=== PATIENT | male | born 1980 | race Caucasian/White ===

== ENCOUNTER → 2020-07-24 13:06 | Outpatient (BNVA) | payer OTHER, SELFPAY | PROVIDERS: PCP Internal Medicine; Referring Provider Internal Medicine; Visit Provider Physician Assistant | DX: Z76.89 Persons encountering health services in other specified circumstances (principal) ==

== ENCOUNTER → 2020-08-07 12:54 | Outpatient (BNVA) | payer OTHER, SELFPAY | PROVIDERS: PCP Internal Medicine; Visit Provider Physician Assistant | DX: Z76.89 Persons encountering health services in other specified circumstances (principal) ==

== ENCOUNTER → 2020-08-28 10:50 | Outpatient (BNVA) | payer OTHER, SELFPAY | PROVIDERS: PCP Internal Medicine; Referring Provider Internal Medicine; Visit Provider Physician Assistant | DX: Z76.89 Persons encountering health services in other specified circumstances (principal) ==

== ENCOUNTER → 2020-10-30 11:13 | Outpatient (BNVA) | payer OTHER, SELFPAY | PROVIDERS: PCP Internal Medicine; Visit Provider Physician Assistant ==

== ENCOUNTER → 2020-11-13 11:20 | Outpatient (BNVA) | payer OTHER, SELFPAY | PROVIDERS: PCP Internal Medicine; Visit Provider Physician Assistant ==

== ENCOUNTER → 2020-12-03 13:48 | Outpatient (BNVA) | payer OTHER, SELFPAY | PROVIDERS: PCP Internal Medicine; Visit Provider Physician Assistant ==

== ENCOUNTER → 2022-04-20 15:43 | Outpatient (BNVA) | payer OTHER, SELFPAY | PROVIDERS: PCP Nurse Practitioner Family; Visit Provider Dietitian, Registered | DX: Z71.3 Dietary counseling and surveillance (principal); E66.01 Morbid (severe) obesity due to excess calories | CPT/HCPCS: 97802 ==

== ENCOUNTER → 2022-04-21 16:30 | Outpatient (BNVA) | payer OTHER, SELFPAY | PROVIDERS: PCP Nurse Practitioner Family; Visit Provider Counselor Mental Health | DX: F32.A Depression, unspecified (principal); E66.01 Morbid (severe) obesity due to excess calories; E11.9 Type 2 diabetes mellitus without complications | CPT/HCPCS: 90791 ==

== ENCOUNTER 2022-05-26 07:34 | Outpatient (REF) | payer OTHER, SELFPAY ==
--- NOTE | ~2022-05-26 | US_ITS ---
EXAMINATION: US COMPLETE ABDOMEN WITH LIVER ELASTOGRAPHY CLINICAL INFORMATION: Type 2 diabetes mellitus without complications. COMPARISON: None. TECHNIQUE: Real-time imaging of the abdominal viscera. Noninvasive ultrasound liver fibrosis assessment is performed using Jonathan ElastPQ point quantification shear wave elastography (2D-SWE) with a C5-2 MHz transducer. Multiple elastography samples are obtained. FINDINGS: PANCREAS: The visualized pancreatic head and body are normal in appearance. The remainder of the pancreas is obscured from visualization by the overlying bowel gas. ABDOMINAL AORTA: The proximal, middle, and distal aortic segments are normal in caliber. INFERIOR VENA CAVA: Visualized portions are normal. LIVER: The liver demonstrates normal size, contour and increased echogenicity. No focal lesion or intrahepatic biliary duct dilatation. The right lobe measures 21.5 cm in length. The left lobe measures 15.6 cm in length. Portal flow is hepatopedal. Shear wave liver elastography median stiffness is 1.81 m/s (reference: normal median stiffness is 1.3 m/s or less). IQR/median stiffness to assess sampling precision is 0.1 (reference: good quality data set is IQR/median stiffness of 0.15 or less). GALLBLADDER: There are mobile echogenic gallstones with mild wall thickening measuring 0.3 cm. The stones measure 2.0 and 4.0 cm. There is no pericholecystic fluid collection or tenderness. COMMON BILE DUCT: Normal in caliber measuring 0.4 cm in diameter. RIGHT KIDNEY: There is normal cortical thickness. No hydronephrosis. No renal calculi or focal parenchymal lesions. The kidney measures 13.7 cm in maximum dimension. There is an anechoic cyst upper pole measuring 0.8 x 0.8 x 0.6 cm. LEFT KIDNEY: There is normal cortical thickness. No hydronephrosis. No renal calculi or focal parenchymal lesions. The kidney measures 13.3 cm in maximum dimension. SPLEEN: Normal. The spleen measures 13.2 cm in maximum dimension. FREE FLUID: None. US/US abdomen comp w elastography IMPRESSION: 1. Diffuse hepatic steatosis without focal lesion. 2. Gallstones. 3. Anechoic upper pole cyst right kidney. 4. Liver elastography: Median liver stiffness 1.81 m/s corresponding to cACLD (suggestive) REFERENCE: Society of Radiologists in Ultrasound Liver Stiffness Thresholds (2019): LIVER STIFFNESS THRESHOLDS: *Liver Stiffness equal or less than 1.3 m/s: High probability of being normal. *Liver Stiffness less than 1.7 m/s: In the absence of other known clinical signs, rules out compensated advanced chronic liver disease. *Liver Stiffness 1.7-2.1 m/s: Suggestive of compensated advanced chronic liver disease but need further test for confirmation. *Liver Stiffness over 2.1 m/s: Rules in compensated advanced chronic liver disease. *Liver Stiffness over 2.4 m/s: Suggestive of clinically significant portal hypertension. QUALITY OF DATA SET: *IQR/Median value equal or less than 0.15 implies a quality data set. *IQR/Median value over 0.15 implies a poor quality data set. SIGNIFICANT CHANGE FROM PRIOR EXAM: Significant change if liver stiffness measurement is 10% or greater from prior exam. OTHER CONSIDERATIONS: The stage of liver fibrosis may be overestimated in the setting of acute hepatitis, liver inflammation, elevated liver function tests, hepatic vascular congestion, obstructive cholestasis, non-fasting state, and infiltrative diseases such as amyloidosis and lymphoma. In some patients with NAFLD, the liver stiffness thresholds for compensated advanced chronic liver disease may be lower. In causes other than viral hepatitis and NAFLD, liver stiffness thresholds are not well established.
--- NOTE | ~2022-05-26 | FL_ITS ---
EXAMINATION: XR FLUOROSCOPY UPPER GI WITH AIR CLINICAL INFORMATION: Preop. Type 2 diabetes mellitus. COMPARISON: None TECHNIQUE: Routine upper GI air-contrast study was performed in upright and lying position. FINDINGS: Following oral administration of thick barium and effervescent granules there is normal propagation bolus from the oral cavity through the pharynx, esophagus into stomach without any evidence of obstruction, narrowing or stricture. On placing patient supine and prone lying the course, caliber and peristalsis of the stomach, duodenal bulb and the CBD is normal. The mucosal pattern of the stomach and the duodenum is normal. FLUOROSCOPY TIME: 1.0 minutes. DOSE AREA PRODUCT: 77.698 uGy-m2 (microgray-meter squared.) FL/FL upper GI w air IMPRESSION: Normal upper GI air-contrast study.
--- NOTE | ~2022-05-26 | XR_ITS ---
EXAMINATION: XR CHEST CLINICAL INFORMATION: Diabetes mellitus. COMPARISON: Chest x-ray 06/19/2020 TECHNIQUE: 2 views of the chest were obtained. FINDINGS: No significant abnormality is noted involving the heart, lungs, mediastinum, bony thorax or soft tissues. XR/XR chest 2V IMPRESSION: Unremarkable chest examination.
== END 2022-05-26 07:35 | disposition home or self-care (01) ==
LOC: HO.US 07:34
PROVIDERS: Visit Provider Physician Assistant
DX: E11.9 Type 2 diabetes mellitus without complications (principal); E66.01 Morbid (severe) obesity due to excess calories; I10 Essential (primary) hypertension
CPT/HCPCS: 71046; 74246; 76705; 76981

== ENCOUNTER → 2022-10-11 12:30 | Outpatient (BNVA) | payer SELFPAY | PROVIDERS: PCP Nurse Practitioner Family; Visit Provider Counselor Mental Health | DX: F32.A Depression, unspecified (principal); E66.01 Morbid (severe) obesity due to excess calories; E11.9 Type 2 diabetes mellitus without complications | CPT/HCPCS: 90832 ==

== ENCOUNTER 2022-12-16 11:24 | Outpatient (REF) | payer BC, SELFPAY ==
--- NOTE | 2022-12-16 12:13 | ECG_ITS ---
Test Reason : preop Blood Pressure : / mmHG Vent. Rate : 071 BPM Atrial Rate : 071 BPM P-R Int : 178 ms QRS Dur : 114 ms QT Int : 388 ms P-R-T Axes : 051 052 037 degrees QTc Int : 421 ms Normal sinus rhythm Incomplete left bundle branch block Nonspecific ST and T wave abnormality Abnormal ECG When compared with ECG of 19-JUN-2020 13:58, Nonspecific T wave abnormality now evident in Lateral leads Referred By: Ira Diana Electronically Signed By:IRVIN HENRIQUEZ
[2022-12-16 12:19] LABS: MANUAL DIFF FLAG NO
[2022-12-16 14:14] LABS: Basophils Absolute Auto 0.1 X10*3/uL (0.0-0.2); Basophils Percent Auto 0.9 % (0-2); Eosinophils Absolute Auto 0.2 X10*3/uL (0.0-0.4); Eosinophils Percent Auto 2.5 % (0-4); Hematocrit 43.3 % (42.0-52.0); Hemoglobin 14.2 g/dl (14.0-18.0); Imm Gran Abs Auto 0.04 X10*3/uL (0.00-0.03); Imm Gran Pct Auto 0.5 % (0.0-0.4); Lymphocytes Absolute Auto 1.9 X10*3/uL (1.2-4.9); Lymphocytes Percent Auto 24.6 % (20-40); Mean Corpuscular HGB Conc 32.8 g/dl (31.0-36.0); Mean Corpuscular Hemoglobin 26.1 pg (27.0-33.0); Mean Corpuscular Volume 79.6 fL (80.0-98.0); Mean Platelet Volume 9.4 fL (9.4-12.4); Monocytes Absolute Auto 0.5 X10*3/uL (0.1-1.2); Monocytes Percent Auto 5.9 % (2-11); Neutrophils Absolute Auto 5.2 x10*3/uL (2.0-8.3); Neutrophils Percent Auto 65.6 % (45-73); Platelet Count 319 X10*3/uL (160-400); Red Blood Count 5.44 X10*6/uL (4.60-5.80); Red Cell Distribution Width 14.2 % (11.0-16.0); White Blood Count 7.9 X10*3/uL (4.8-10.8)
[2022-12-16 14:48] LABS: Estimated Average Glucose 154 mg/dL
[2022-12-16 15:22] LABS: Alanine Aminotransferase 22 U/L (0-40); Albumin Level 3.9 g/dL (3.5-5.0); Alkaline Phosphatase 110 U/L (39-117); Anion Gap 15 (12-20); Aspartate Amino Transferase 16 U/L (5-37); Bilirubin Total 0.8 mg/dL (0.0-1.0); Blood Urea Nitrogen 10 mg/dL (9-16); Carbon Dioxide 23 mmol/L (22-29); Chloride 105 mmol/L (96-108); Cholesterol 173 mg/dL; Estimated Glomerular Filt Rate > 60; Glucose Random 113 mg/dL (60-115); HDL Cholesterol 30 mg/dL; Iron 64 mcg/dL (45-160); LDL Cholesterol Calculated 124 mg/dl; Percent Iron Saturation 21 % (15-50); Sodium 139 mmol/L (135-145); Total Iron Binding Capacity 298 mcg/dL (228-428); Triglycerides 99 mg/dL; Unsaturated Iron Binding 234 ug/dL
[2022-12-16 15:51] LABS: Ferritin 184 ng/mL (20-250); Folate 6.4 ng/mL (> or = 4.0); Insulin 11 uU/mL (2-29); TSH reflex Free T4 1.76 uIU/mL (0.32-4.0); Vitamin B12 437 pg/mL (200-900); Vitamin D 25-OH Total 11.2 ng/mL (>30)
[2022-12-18 12:07] LABS: H Pylori Breath Test Negative (Negative)
[2022-12-20 14:53] LABS: Calcium (PTHI) 9.1 mg/dL (8.6-10.3); PTHI 64 pg/mL (16-77)
[2022-12-21 00:19] LABS: Zinc 69 mcg/dL (60-130)
[2022-12-21 18:04] LABS: Vitamin B1 <6 nmol/L (8-30)
[2022-12-22 05:09] LABS: Vitamin A 32 mcg/dL (38-98)
== END 2022-12-16 11:25 | disposition home or self-care (01) ==
LOC: HO.LAB 11:24
PROVIDERS: PCP Nurse Practitioner Family; Visit Provider Physician Assistant
DX: Z01.818 Encounter for other preprocedural examination (principal); E66.01 Morbid (severe) obesity due to excess calories; E11.9 Type 2 diabetes mellitus without complications; E78.5 Hyperlipidemia, unspecified; I10 Essential (primary) hypertension; F32.A Depression, unspecified; Z79.899 Other long term (current) drug therapy; Z71.3 Dietary counseling and surveillance
CPT/HCPCS: 36415; 80053; 80061; 82306; 82607; 82728; 82746; 83013; 83036; 83525; 83540; 83970; 84425; 84443; 84590; 84630; 85025; 86140; 93005

== ENCOUNTER → 2023-01-04 07:49 | Outpatient (REF) | payer BC, SELFPAY ==
--- NOTE | 2023-01-04 07:55 | CA_ITS ---
Transthoracic Echocardiogram Patient (Last, First, Middle): Gabriel Lyons P Gender: Male Date of : 1980 Age: 42 Procedure Date: 01/04/2023 Procedure Type: Transthoracic Echocardiogram Location: OP Height: 180.34 cm Weight: 187.79 kg BSA: 2.87 m2 Heart Rate: bpm BP: 150 / 90 mmHg Dovetailer: TO Referring MD: Ira Diana PA-C Symptoms: I44.7 - Left bundle-branch block, unspecified Study Quality: Technically Difficult/Contrast ECG Rhythm: Sinus Conclusions: - The left ventricular systolic function is mildly decreased. The visually estimated ejection fraction is between 45-50%. - No obvious valvular pathology seen on this study. Findings Procedure Information Contrast agent, definity, is being given per protocol without apparent complications. Left Ventricle Mildly increased left ventricular cavity size. The left ventricular systolic function is mildly decreased. The visually estimated ejection fraction is between 45-50%. There is mild global hypokinesis. Diastolic function is normal for age. There is moderate septal asymmetric hypertrophy. Right Ventricle Normal right ventricular cavity size and systolic function. Atria Both atria are normal in size. Aortic Valve There is a normal trileaflet aortic valve. There is no aortic valve stenosis. There is no aortic valve regurgitation. Mitral Valve The mitral valve appears normal. There is mild mitral annular calcification. There is no mitral valve regurgitation. There is no mitral valve stenosis. Pulmonic Valve The pulmonic valve is likely normal. Tricuspid Valve There is no tricuspid valve regurgitation. Tricuspid regurgitation envelope is inadequate for calculation of right ventricular systolic pressure. Great Vessels The asc aorta is normal in size. Venous The inferior vena cava is mildly dilated and collapses greater than 50% with inspiration. Pericardium/Pleural There is no evidence of pericardial effusion. Prior Study Comparison No prior study available for comparison. Recommendations, Care & Conclusions No obvious valvular pathology seen on this study. Measurements 2D Linear Measurements IVSd: 1.44 0.6-0.9/0.6-1.0 cm LVIDd: 6.50 3.9-5.3/4.2-5.9 cm LVIDd Index: 2.26 2.4-3.2/2.2-3.1 cm/m2 LVIDs: 5.19 2.0-3.6 cm LVPWd: 1.03 0.7-1.1 cm LA Diam: 4.30 2.7-3.8/3.0-4.0 cm LAIDs Index: 1.50 1.5-2.3 cm/m2 LV Mass: 464.99 67-162/88-224 g LV Mass Index: 162.02 43-95/49-115 g/m2 LVOT Diam: 2.40 3.0+(-)1.3 cm 2D Systolic Function EF 4C: 49.10 >55% Mitral Valve MV Pk E: 0.77 MV PK A: 0.64 MV Decel Time: 185.00 E/A: 1.20 E'Lateral: 10.80 E'Medial: 8.05 E/E' Med: 9.50 E/E' Lat: 7.10 PHT: 54.00 MVA PHT: 4.07 Decel [place]: 4.15 Aortic Valve AoV Pk Mk: 1.51 AoV Mn Mk: 1.08 AoV VTI: 0.33 AoV Pk Grad: 9.00 Aov Mn Grad: 5.00 RUFUS Cont.VTI: 2.79 LVOT LVOT Pk Mk: 0.93 LVOT Mn Mk: 0.70 LVOT VTI: 0.20 LVOT Pk Grad: 3.00 LVOT Mn Grad: 2.00 LVOT Diam: 2.40 LVOT Area: 4.52 Diastolic Function MV Pk E: 0.77 MV Pk A: 0.64 E/A: 1.20 E'Medial: 8.05 E/E' Med: 9.50 E' Laterial: 10.80 E/E' Lat: 7.10 Right Ventricle TAPSE (mm): 28.10 TVS' Mk: 13.30 Tricuspid Valve RA Press: 3.00 Great Vessels Aorta Sinus of Valsalva: 4.05 2.0-3.5 cm Ao Asc: 3.60 2.1-3.4 cm Updated in Other Vendor System with Status of Final Roger Osborne MD electronically signed on 01/05/2023 11:17:48 AM with status of Final
== END ==
LOC: HO.CARD 07:49
PROVIDERS: PCP Nurse Practitioner Family; Visit Provider Physician Assistant
DX: I44.7 Left bundle-branch block, unspecified (principal); R06.02 Shortness of breath; R94.31 Abnormal electrocardiogram [ECG] [EKG]
CPT/HCPCS: 93306; Q9957

== ENCOUNTER → 2023-01-06 09:43 | Outpatient (REF) | payer BC, SELFPAY ==
--- NOTE | ~2023-01-06 | NM_ITS ---
Lexiscan Myocardial perfusion study Indication: Preoperative cardiovascular evaluation, assess for coronary disease Technique: The patient was brought in for a Lexiscan perfusion study on 01/06/2023 and was injected 0.4 mg of Lexiscan intravenously. Within a minute of this injection 45 mCi of sestamibi was given intravenously. Images were obtained using the SPECT gamma camera interlaced with the gating device. Images were obtained in supine position. Resting perfusion study was performed on 01/09/2023. Patient was administered 45 mCi of sestamibi intravenously at rest. Images were then obtained in supine position. Total DLP 253mGy-cm. Images were processed with the software and compared side to side in short axis, horizontal long axis and vertical long axis views. Findings: Raw acquisition reviewed. Study quality is limited because of body habitus. The stress perfusion study showed diminished tracer uptake towards the apex. There is also diminished tracer uptake in the basal to mid anterior septum. Some improvement in the apical uptake with CT attenuation correction. Basal anteroseptal uptake similar. Otherwise, some areas with worse uptake, but is most likely technical.. The gated study shows diminished LV systolic function with calculated LVEF of 36%. LV cavity is dilated in size. The gated study shows globally diminished wall thickening and contraction of segments. Resting study shows mildly reduced tracer uptake in the basal part of inferior wall. Delayed changes with CT attenuation correction. Gating at rest reveals globally reduced wall thickening with ejection fraction at 39%. The findings are consistent with slight reversible basal anteroseptal defect; could be artifactual. Otherwise, no clear reversible or fixed defects. NM/NM cardiolite stress test Impression: 1. Myocardial perfusion imaging study shows small basal anteroseptal reversible defect, artifact versus small area of ischemia. Otherwise, no clear reversible or fixed defects. 2. Gated LVEF is 36% during stress and 39% during rest. 3. Transient ischemic dilatation not present. EKG component of the test reported separately.
--- NOTE | 2023-01-06 09:47 | CA_ITS ---
Acquisition Time: 2023-01-06 10:18:11 Total Exercise Time: 00:02:00 Test Indications: Abn.EKG. LBBB Medications: Protocol: LEXISCAN Max HR: 096 BPM 53% of Pred: 178 BPM Max BP: 146/088 mmHG Max Work Load: 1.0 METS Pharmacological stress test with Lexiscan injection, while sitting and not moving, with mild sob, no chest discomfort, with isolated PVCs, with normotensive response to injection, with nondiagnostic EKG for ischemia. Nuclear images pending. Test reviewed with Dr Osborne. Referred By: Ira Diana Overread By: MANOJ AHN
== END ==
LOC: HO.CARD 09:43
PROVIDERS: PCP Nurse Practitioner Family; Visit Provider Physician Assistant
DX: I44.7 Left bundle-branch block, unspecified (principal); R94.31 Abnormal electrocardiogram [ECG] [EKG]; R06.02 Shortness of breath
CPT/HCPCS: 78452; 93017; A9500; J0280; J2785

== ENCOUNTER → 2023-01-09 08:23 | Outpatient (BNVA) | payer BC, SELFPAY | PROVIDERS: PCP Nurse Practitioner Family; Visit Provider Physician Assistant | DX: Z13.89 Encounter for screening for other disorder (principal) ==

== ENCOUNTER → 2023-01-17 08:14 | Outpatient (BNVA) | payer BC, SELFPAY | PROVIDERS: PCP Nurse Practitioner Family; Visit Provider Internal Medicine | DX: Z13.89 Encounter for screening for other disorder (principal) ==

== ENCOUNTER 2023-03-18 10:22 | Outpatient (REF) | payer BC, SELFPAY ==
[2023-03-18 10:51] LABS: Hematocrit 43.3 % (42.0-52.0); Hemoglobin 14.1 g/dl (14.0-18.0); Mean Corpuscular HGB Conc 32.6 g/dl (31.0-36.0); Mean Corpuscular Hemoglobin 25.8 pg (27.0-33.0); Mean Corpuscular Volume 79.3 fL (80.0-98.0); Platelet Count 297 X10*3/uL (160-400); Red Blood Count 5.46 X10*6/uL (4.60-5.80); Red Cell Distribution Width 14.1 % (11.0-16.0); White Blood Count 9.1 X10*3/uL (4.8-10.8)
[2023-03-18 10:57] LABS: Prothrombin Time 11.1 SEC (10.0-13.1)
[2023-03-18 11:29] LABS: Anion Gap 10 (12-20); Blood Urea Nitrogen 12 mg/dL (9-16); Calcium 8.8 mg/dL (8.4-10.2); Carbon Dioxide 28 mmol/L (22-29); Chloride 106 mmol/L (96-108); Estimated Glomerular Filt Rate > 60; Glucose Random 171 mg/dL (60-115); Potassium 4.3 mmol/L (3.3-5.1); Sodium 140 mmol/L (135-145)
== END 2023-03-18 10:23 | disposition home or self-care (01) ==
LOC: HO.LAB 10:22
PROVIDERS: PCP Nurse Practitioner Family; Visit Provider Internal Medicine
DX: I42.9 Cardiomyopathy, unspecified (principal)
CPT/HCPCS: 36415; 80048; 85027; 85610

== ENCOUNTER → 2023-04-07 12:51 | Outpatient (BNVA) | payer BC, SELFPAY | PROVIDERS: Visit Provider Nurse Practitioner Family ==

== ENCOUNTER 2023-04-24 15:45 | Outpatient (AMB) | payer BC, SELFPAY ==
--- NOTE | 2023-04-24 15:48 | A.OFFVIS_ITS ---
Intake VS Expanded 04/24/23 15:53 Height 5 ft 11 in Weight 427 lb 3.2 oz BMI 59.6 Blood Pressure Location Rt brachial Blood Pressure Position Sitting Pulse 87 Pulse Source Pulse Oximeter Temp 97.5 F Temperature Source Temporal Artery Scan Pulse Oximetry 95 Oxygen Delivery Method Room Air Body Fat 211.0 Body Fat Percentage 49.4 Free Fat Mass 216.0 Muscle Mass 205.6 Visceral Mass 40.0 Water Mass 164.2 BMR 3,231 Intake Visit Reasons: (OV) F/U SWL Allergies No Known Allergies Allergy (Verified 04/24/23 15:50) Medication List - Last Reconciled 04/24/23 by Ira Diana PA-C amlodipine 10 mg PO DAILY bupropion HCl 150 mg PO DAILY cholecalciferol (vitamin D3) 50 mcg PO DAILY glipizide ER 5 mg PO DAILY lisinopril-hydrochlorothiazide 20-12.5 mg 1 tab PO DAILY metformin 1,000 mg PO BID thiamine HCl (vitamin B1) 50 mg PO DAILY HPI HPI Comments History of Present Illness Details SWL follow up . [facility] appt March 2022 at 426.4 lbs, has stopped a few times and restarted. Has cardiology clearance now - follow up with them in 5 months. BS fasting - 99, during the day 101 - 136 Meal plan: restarted 2 weeks (does not have a started weight) 9am - shake 12pm - bar or shake 3pm - shake or bar 6pm - air fryer, 6-8 protein and vegetables. Uses mindfullness in evenings not to snack. Exercise plan: restarted gym last week, elliptical for 30 minutes - 350- 400 calories UE machines - 30 lbs Pre op work up completed as follows: SWL classes -? 05/16 [facility] appts - cleared, last seen April 2022? ? RD appts - cleared, last seen October 2022 H pylori - negative, December 2019, negative December 2022 Labs -done CXR - normal, May 2022 ULS - small gallstones, fatty liver, May 2022 UGI - steatosis, hepatomegaly - R 21.5, L 15.6 cms, May 2022 Fasting BS this am - 90 -120. During the day -85 - 100. ECG -? Normal sinus rhythm Incomplete left bundle branch block Nonspecific ST and T wave abnormality Abnormal ECG When compared with ECG of 11-SEP-2020 13:58, Nonspecific T wave abnormality now evident in Lateral leads Pt had nuclear stress and ECHO ordered along with cardiology referral - needs to make cardiology appt. ECHO - 45 - 50%, mildy decreased, no valvular pathology.?? Cardiac cath done 03/21/23 [facility] Medical History Depression Hypertension Morbid obesity Surgical History Hx of wisdom tooth extraction Family History Father DM (diabetes mellitus) DM retinopathy Mother Liver problem Brother No problems noted. Sister No problems noted. Social History Alcohol intake: never Patient Tobacco Use Status: Former Tobacco user Physical Exam Vital Signs: Last Vital Signs Temp 97.5 F 04/24/23 15:53 Pulse 87 04/24/23 15:53 Pulse Ox 95 04/24/23 15:53 Oxygen Delivery Method Room Air 04/24/23 15:53 BMI result Body Mass Index 59.6 Assessment & Plan Assessment & Plan (1) Morbid obesity: Code(s): E66.01 - Morbid (severe) obesity due to excess calories Plan: SWL follow up - all pre operative work up completed except weight loss done. [facility] weight of 426 lbs. Will continue with his meal plan. 'Exercise - 4 d cardio (350 - 400 calories) and [address] Will schedule appt martha Diaz. Next appt with me in 3 weeks. Patient is morbidly obese and is not considered stable at this time. I spent 30 minutes in total with patient reviewing/updating records, examining the patient and counseling the patient on weight management as detailed above. (2) Diabetes mellitus: Code(s): E11.9 - Type 2 diabetes mellitus without complications (3) S/P cardiac cath: Comment: 03/21/23 normal coronary arteries Code(s): Z98.890 - Other specified postprocedural states Medications: Refilled cholecalciferol (vitamin D3) 50 mcg PO DAILY 30 caps 5RF Coding Level of Care Code Est Pt Level 4 (44548) Diagnoses Morbid obesity E66.01 Diabetes mellitus E11.9 S/P cardiac cath Z98.890
[2023-04-24 15:53] VITALS: PULSE 87; TEMP 36.4; O2SAT 95; BMI 59.6
== END 2023-04-24 16:28 | disposition home or self-care (01) ==
PROVIDERS: PCP Nurse Practitioner Family; Visit Provider Physician Assistant
DX: E66.01 Morbid (severe) obesity due to excess calories (principal); Z68.43 Body mass index [BMI] 50.0-59.9, adult; E11.9 Type 2 diabetes mellitus without complications; Z98.890 Other specified postprocedural states
CPT/HCPCS: 99214

== ENCOUNTER → 2023-04-24 15:45 | Outpatient (BNVA) | payer BC, SELFPAY | PROVIDERS: PCP Nurse Practitioner Family; Visit Provider Physician Assistant ==

== ENCOUNTER 2023-05-03 10:25 | Outpatient (AMB) | payer BC, SELFPAY ==
--- NOTE | 2023-05-03 16:29 | MHC.WMTHER ---
Intake Intake Visit Reasons: (OV) BH F/U Allergies No Known Allergies Allergy (Verified 04/24/23 15:50) PFSH Medical History Depression Hypertension Morbid obesity Surgical History Hx of wisdom tooth extraction Family History Father DM (diabetes mellitus) DM retinopathy Mother Liver problem Brother No problems noted. Sister No problems noted. Social History Alcohol intake: never Patient Tobacco Use Status: Former Tobacco user Behavioral Health Assessment Weight Management Therapy Therapy Notes Details Patient reported struggling with consistency in the program. He will do well for a couple of weeks and then fall off track. Often has all or nothing mindset with his goals. We discussed what could happen if he does not follow through with what he wants to accomplish with his health. Presenting Concerns Referral Source provider Assessment & Plan Assessment & Plan (1) Depressive disorder in remission: Code(s): F32.A - Depression, unspecified (2) Morbid obesity: Code(s): E66.01 - Morbid (severe) obesity due to excess calories (3) Diabetes mellitus: Code(s): E11.9 - Type 2 diabetes mellitus without complications Plan Patient has been struggling for many months in the program unable to be consistent. We reviewed goals, why he is here, mostly motivational interviewing, mindset changes, and discipline. He does not have any sig. mental health issues but does take medication for depression. Coding Level of Care Code Tele Psytx 45 mins (72275) Diagnoses Depressive disorder in remission F32.A Morbid obesity E66.01 Diabetes mellitus E11.9 Time Spent (min) 40
== END 2023-05-03 16:25 | disposition home or self-care (01) ==
PROVIDERS: PCP Nurse Practitioner Family; Visit Provider Counselor Mental Health
DX: F32.A Depression, unspecified (principal); E66.01 Morbid (severe) obesity due to excess calories; E11.9 Type 2 diabetes mellitus without complications
CPT/HCPCS: 90834

== ENCOUNTER → 2023-05-03 10:25 | Outpatient (BNVA) | payer BC, SELFPAY | PROVIDERS: PCP Nurse Practitioner Family; Visit Provider Counselor Mental Health ==

== ENCOUNTER 2024-02-28 16:09 | Outpatient (AMB) | payer BC, SELFPAY ==
--- NOTE | 2024-02-28 16:10 | MHC.OFFVISWM ---
VS Expanded 02/28/24 16:18 BP 182/110 H Blood Pressure Location Rt brachial Blood Pressure Position Sitting Pulse 90 Pulse Source Pulse Oximeter Temp 97.1 F Temperature Source Temporal Artery Scan Pulse Oximetry 97 Oxygen Delivery Method Room Air Height 5 ft 11 in Weight 429 lb 3.2 oz BMI 59.9 Body Fat % 49.7 Body Fat Mass 213.2 Fat Free Mass 215.8 Visceral Fat Rating 41.0 Body Water % 38.3 Body Water Mass 164.4 Muscle Mass/Score 205.4 Basal Metabolic Rate/Score 3,230 Intake Visit Reasons: swl follow up [place] Required: No Allergies No Known Allergies Allergy (Verified 04/24/23 15:50) Medication List - Last Reconciled 02/28/24 by FOZIA Gibson amlodipine 10 mg PO DAILY bupropion HCl SR 150 mg PO DAILY cholecalciferol (vitamin D3) 50 mcg PO DAILY dulaglutide (Trulicity) 0.75 mg subcut QWEEK glipizide ER 5 mg PO DAILY lisinopril-hydrochlorothiazide 20-12.5 mg 1 tab PO DAILY metformin 1,000 mg PO BID thiamine HCl (vitamin B1) 50 mg PO DAILY HPI Comments Details: Patient is a pleasant 43-year-old male who presents to the weight management program to restart care. He was initially seen in August 2019 through November 2020 and then again in March 2022 through April 2023. His highest weight was 436.2 lowest weight was 412.8. Weight today for 29.2 lb with a BMI of 59.9. States that over the last month he has not been taking his combination blood pressure medication lisinopril-hydrochlorothiazide, 20-12.5 mg. He had run out of this medication and should be receiving a refill in the meal shortly, but has not been taking it for the last month. He has been taking his amlodipine. He states that when he takes his blood pressure medications his blood pressure is typically 120s over 80s. He states that he was seen by his primary care physician approximately a week ago with blood pressure in the 140s over 90s. He reports he has been under increased stress lately as his [id number] is admitted to the hospital. Blood pressure in the office was 182/110. Given the hypertensive urgency I recommended he go to the emergency room in an attempt to identify if there is any end-organ damage. He currently denies headache, chest pain, blurry vision and otherwise feels well. Given the acute hypertension, I encouraged him to go to the emergency room and explained the risks of elevated blood pressure. He additionally was recently started on Trulicity as his hemoglobin A1c was 10.6. We certainly encouraged him to call the office to reschedule his appointment and I will see him as quickly as possible. [facility] Medical History Hypertension Depression Morbid obesity Surgical History Hx of wisdom tooth extraction Family History Father DM (diabetes mellitus) DM retinopathy Mother Liver problem Brother No problems noted. Sister No problems noted. Social History Alcohol intake: never Patient Tobacco Use Status: Former Tobacco user Physical Exam Resp Effort & Inspection: normal respiratory effort Cardio Rate: regular rate Rhythm: regular rhythm Heart sounds: S1 normal heart sound present and S2 normal heart sound present Assessment & Plan Assessment & Plan (1) Morbid obesity: Code(s): E66.01 - Morbid (severe) obesity due to excess calories Category: Medical Plan: Patient encouraged call the office to reschedule his appointment as quickly as possible. (2) Hypertension: Code(s): I10 - Essential (primary) hypertension Category: Medical Plan: Advised to go to the emergency room for evaluation of possible end-organ damage. Additionally, he states that he is expecting his lisinopril/hydrochlorothiazide medication in the meal shortly
[2024-02-28 16:18] VITALS: BP 182/110; PULSE 90; TEMP 36.2; O2SAT 97; BMI 59.9
== END 2024-02-28 16:44 | disposition home or self-care (01) ==
LOC: HO.HBS 16:09
PROVIDERS: PCP Nurse Practitioner Family; Visit Provider Physician Assistant Surgical
DX: E66.01 Morbid (severe) obesity due to excess calories (principal); Z68.43 Body mass index [BMI] 50.0-59.9, adult; I10 Essential (primary) hypertension
CPT/HCPCS: 99214

== ENCOUNTER → 2024-02-28 16:09 | Outpatient (BNVA) | payer BC, SELFPAY | PROVIDERS: PCP Nurse Practitioner Family; Visit Provider Physician Assistant Surgical ==

== ENCOUNTER 2025-06-20 13:11 | Outpatient (AMB) | payer BC, SELFPAY ==
--- NOTE | 2025-06-20 13:13 | A.OFFPC_ITS ---
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 Required: No Accompanied by: Self / Same As Patient Allergies dapagliflozin (From [facility]) Adverse Reaction (Mild, Verified 06/20/25 13:58) Nausea metformin Adverse Reaction (Mild, Verified 06/20/25 13:58) Dizziness Medication List - Last Reconciled 06/20/25 by Candy Shrestha PA-C amlodipine 10 mg PO DAILY bupropion HCl SR 150 mg PO DAILY lisinopril-hydrochlorothiazide 20-12.5 mg 2 tabs PO DAILY Tobacco use date assessed: 06/20/25 Dental Screening Dental Screen Date: 06/20/25 Did you have a dental visit in the last 12 months?: No Did you have a dental problem in the last 6 months where you did not have access to dental care?: No Was dental information given to patient?: Patient has dentist 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 Presenting for management of hypertension and diabetes mellitus. The patient has a history of hypertension, previously managed with amlodipine, lisinopril, and hydrochlorothiazide. Blood pressure readings have been consistently high, with a recent measurement of 170/120 mmHg. The patient reports no symptoms of dizziness or lightheadedness despite elevated blood pressure. The patient has a history of diabetes mellitus, previously managed with metformin and Ozempic. The patient reports poor control of blood glucose levels, with a recent A1c of 10.3%. The patient has experienced significant weight loss of 28 pounds over the past year. The patient has a history of depression, currently managed with Wellbutrin 150 mg once daily. [facility] Medical History Abnormal nuclear stress test Incomplete left bundle branch block (LBBB) Hypertension Depression Morbid obesity Surgical History H/O tooth extraction Hx of wisdom tooth extraction Family History Father DM (diabetes mellitus) DM retinopathy Mother Liver problem Brother No problems noted. Sister No problems noted. Social History Household Members: Spouse Both parents involved: No Caregiver staying overnight: No Housing: Condominium Are you a primary care process manager to a significant other at home: No Do you presently have visiting nurse or other home services: No Alcohol intake: never Patient Tobacco Use Status: Former Tobacco user e-Cigarette/Vaping Use: Never Used Substance Use Type: Marijuana service: No Current occupational status: employed Hearing needs: No Vision needs: No Questionnaire PHQ-9 Over the last 2 weeks, how often have you been bothered by any of the following problems? 1. Little interest or pleasure in doing things: not at all 2. Feeling down, depressed, or hopeless: not at all 3. Trouble falling or staying asleep, or sleeping too much: not at all 4. Feeling tired or having little energy: not at all 5. Poor appetite or overeating: not at all 6. Feeling bad about yourself - or that you are a failure or have let yourself or your family down: not at all 7. Trouble concentrating on things, such as reading the newspaper or watching television: not at all 8. Moving or speaking so slowly that other people could have noticed. Or the opposite - being so fidgety or restless that you have been moving around a lot more than usual: not at all 9. Thoughts that you would be better off or of hurting yourself in some way: not at all Total score: 0 Depression Screening Interpretation: Negative Depression Screening Done: Yes 78068 - PHQ-9 Billing: Yes Source: Developed by Drs. Barry Ennis, Jennifer Forte, Howard Schmidt and colleagues, with an educational juan manuel from [employer]. Thrive Questionnaire Date Thrive assessed: 06/19/25 I am a: Patient What is your living situation today?: I have a steady place to live Within the past 12 months, did the food you bought not last and you didn't have the money to get more?: Never true Within the past 12 months, did you worry whether your food would run out before you got money to buy more?: Never true Do you have trouble paying for medicines?: No Do you have trouble getting transportation to medical appointments?: No Do you have trouble paying your heating and electricity bill?: No Do you have trouble taking care of your child, family member or friend?: No Do you have trouble with day-to-day activities such as bathing, preparing meals, shopping, managing finances, etc.?: No Are you currently unemployed and looking for a job?: No Are you interested in more education?: No Please select the resources that you would like help with: None Currently or been in a relationship where the following occur: No concerns reported THRIVE Score: 0 AUDIT C Alcohol Use Questionnaire (AUDIT-C) 1. How often do you have a drink containing alcohol?: Never 2. How many drinks containing alcohol do you have on a typical day when you are drinking?: 1 or 2 3. How often do you have six or more drinks on one occasion?: Never Total Score: 0 HOPE-7 AMB Questionnaire HOPE-7 Date HOPE - 7 assessed: 06/20/25 Feeling nervous, anxious, or on edge: 0 = Not at all Not being able to stop or control worryin = Not at all Worrying too much about different things: 0 = Not at all Trouble relaxin = Not at all Being so restless that it is hard to sit still: 0 = Not at all Becoming easily annoyed or irritable: 0 = Not at all Feeling afraid as if something awful might happen: 0 = Not at all Total HOPE-7 score (0-4 normal; 5-9 mild; 10-14 moderate; 15-21 severe): 0 Source: Developed by Drs. Barry Ennis, Jennifer Forte, Howard Schmidt and colleagues, with an educational juan manuel from [employer]. HOPE-7 Assessment Billing HOPE-7 Assessment Tool: HOPE-7 Assessment 96788 Review of Systems Const Denies body aches, Denies chills, Denies fever(s), Denies headache(s) and Denies poor appetite Eyes Reports no additional complaints ENT Denies dysphagia, Denies dizziness, Denies headache(s) and Denies odynophagia Card Denies chest pain, Denies syncope, Denies edema, Denies irregular heart rhythm, Denies lightheadedness and Denies dyspnea Resp Denies cough and Denies dyspnea GI Denies abdominal pain, Denies constipation, Denies dysphagia, Denies diarrhea, Denies nausea, Denies odynophagia and Denies vomiting Reports no additional complaints Musc Reports no additional complaints and Denies abnormal gait Skin/Breast Reports system reviewed and no additional complaints, except as documented Neuro Denies abnormal gait, Denies dizziness, Denies syncope and Denies headache(s) Psych Reports no additional complaints Physical exam (Primary Care) Vital Signs: Last Vital Signs Pulse 94 06/20/25 13:15 BP 180/108 H 06/20/25 13:15 Pulse Ox 98 06/20/25 13:15 BMI result Body Mass Index 55.9 Tobacco/Smoking Status: Tobacco use Status Tobacco use date assessed 06/20/25 06/20/25 13:23 Patient Tobacco Use Status Former Tobacco user 06/20/25 13:23 e-Cigarette/Vaping Use Never Used 06/20/25 13:23 PHQ-9: PHQ-9 Score PHQ-9: Total score 0 06/20/25 14:06 Depression Screening Interpretation: Negative Thrive Assessment: Date of Thrive Assessment Date Thrive assessed 06/19/25 06/20/25 13:23 Currently or been in a relationship where the following occur: No concerns reported Const General: cooperative, healthy appearing, comfortable and no acute distress Orientation/consciousness: patient oriented x3 [facility] Head: Yes normocephalic Ears: hearing grossly normal bilaterally General nose exam: Normal external nose present Eyes General: appearance normal, both eyes and all related structures Conjunctivae: conjunctivae normal Neck Neck: Yes full ROM and Yes no lymphadenopathy Resp Effort & Inspection: normal respiratory effort Auscultation: clear to auscultation bilaterally, no crackles, no rales, no rhonchi and no wheezes Cardio Rate: regular rate Rhythm: regular rhythm Skin General skin exam: no rashes or lesions noted Neuro General: patient oriented x3 Gait exam (Neuro): Normal gait present Extrem General: Yes normal to inspection, Yes full ROM and No edema Psych Affect: normal affect Attitude: cooperative Insight: Good insight present (Psych) Judgement: Good judgement present (Psych) Coding Level of Care Code New Pt Level 4 (26500) Diagnoses Uncontrolled hypertension I10 Uncontrolled diabetes mellitus with hyperglycemia E11.65 Hyperlipidemia E78.5 Morbid obesity E66.01 S/P cardiac cath Z98.890 Depressive disorder in remission F32.A Additional Codes HOPE-7 Assessment Billing - HOPE-7 Assessment Tool: HOPE-7 Assessment 71325 ([id number]) PHQ-9 - 90918 - PHQ-9 Billing: Yes ([id number]) Assessment & Plan Assessment & Plan (1) Uncontrolled hypertension: Code(s): I10 - Essential (primary) hypertension Category: Medical Plan: The patient's blood pressure is significantly elevated at 170/120 mmHg, despite being on maximum doses of amlodipine, lisinopril, and hydrochlorothiazide. A new medication, clonidine, will be added to the regimen, and the patient will be referred to a lunchroom aide for further evaluation of resistant hypertension. The patient is advised to obtain a home blood pressure cuff for regular monitoring. (2) Uncontrolled diabetes mellitus with hyperglycemia: Code(s): E11.65 - Type 2 diabetes mellitus with hyperglycemia Category: Medical Plan: Decrease the amount of carbohydrates such as pasta, bread, rice, and potatoes and limit the amount of sweets. Although fruits are generally healthy they should be eaten in moderation as they are still high in sugar. Hemoglobin A1c goal of less than 7%. A1c in the clinic 10.3% We discussed multiple treatment at this time. Metformin and Farxiga patient has adverse reactions to and is not a good candidate for at this time. I did discuss with him typically A1c is over 10 we recommend starting on insulin however patient is declining insulin at this time and would like to try Ozempic injection as this has worked for his A1c in the past. I did also place a referral to endocrinology (3) Hyperlipidemia: Code(s): E78.5 - Hyperlipidemia, unspecified Category: Medical Plan: Avoid foods that are high in cholesterol such as red meat, fried foods, eggs and baked goods. Triglyceride goal of less than 150 and LDL goal of less than 100. Ordered for updated blood work (4) Morbid obesity: Code(s): E66.01 - Morbid (severe) obesity due to excess calories Category: Medical Plan: Healthy diet and regular exercise is encouraged. Plan to follow up with weight loss clinic coming up. (5) S/P cardiac cath: Comment: 03/21/23 normal coronary arteries Code(s): Z98.890 - Other specified postprocedural states Category: Surgical Plan: 03/2023 he is asymptomatic at this time denies any chest pain or shortness of breath. We will continue to monitor symptoms (6) Depressive disorder in remission: Code(s): F32.A - Depression, unspecified Category: Medical Plan: The patient's depression is currently managed with Wellbutrin 150 mg once daily, which appears to be effective. Plan During the visit, we discussed the patient's elevated blood pressure and the need for additional medication, clonidine, to manage resistant hypertension. I explained the importance of regular blood pressure monitoring at home and referred the patient to a lunchroom aide for further evaluation. We also addressed the patient's poorly controlled diabetes, with an A1c of 10.3%, and decided to restart Ozempic at the lowest dose while arranging a referral to an advertising editor. The patient was informed about the need for fasting blood work and urine analysis to guide diabetes management. Additionally, we reviewed the patient's current management of depression with Wellbutrin, which appears effective. Preventative care measures, including a tetanus vaccination and a colonoscopy at age 45, were also discussed. This note was constructed using voice recognition software. While every effort has been made to ensure accuracy and it trainer, still areas may have been included sometimes these areas may affect the content or meeting of the given symptoms. Total time spent caring for the patient today was 30 minutes. This includes time spent before the visit reviewing the chart, time spent during the visit, and time spent after the visit and documentation. Patient was informed and verbally consented to the use of an ambient scribe for clinic note documentation during this visit. Orders: Orders Lipid Panel Today E78.00 - Pure hypercholesterolemia, unspecified Vitamin B12 and Folate Today Z13.21 - Encounter for screening for nutritional disorder Complete Blood Count Auto Diff Today I42.9 - Cardiomyopathy, unspecified, Z00.00 - Encounter for general adult medical examination without abnormal findings Comprehensive Met. Panel Today I42.9 - Cardiomyopathy, unspecified, Z00.00 - Encounter for general adult medical examination without abnormal findings AMB Hemoglobin A1c Today Z13.9 - Encounter for screening, unspecified Microalbumin, Random (w Creat) Today E11.9 - Type 2 diabetes mellitus without complications UA CC w/rflx Micro + Cult Today R35.89 - Other polyuria PSA, Ultra Sensitive Today Z12.5 - Encounter for screening for malignant neoplasm of prostate TSH reflex Free T4 Today Z13.29 - Encounter for screening for other suspected endocrine disorder Vitamin D 25-OH Total Today Z13.21 - Encounter for screening for nutritional disorder Referrals Nephrology Referral I10 - Essential (primary) hypertension Endocrinology Referral E11.65 - Type 2 diabetes mellitus with hyperglycemia Medications: New clonidine HCl 0.2 mg PO BID 180 tabs 0RF 90 days semaglutide (Ozempic) for 4 weeks 0.25 mg (0.368 mL) subcut QWEEK 3 mL 0RF E11.65 - Type 2 diabetes mellitus with hyperglycemia blood pressure monitor (Blood Pressure Kit) XL cuff; As directed to check BP daily 1 ea 0RF I10 - Essential (primary) hypertension
[2025-06-20 13:15] VITALS: BP 180/108; PULSE 94; O2SAT 98; BMI 55.9
--- OUTSIDE RECORDS SUMMARY | 2025-06-20 15:41 | XMS_ITS | Patient Health Record ---
Author Organization [facility] Address [address] [place] [address] Care Team Providers Care Tile Trimmer Name Role Phone Noah VEGA, Ken Primary Care Provider Russ Sanchez Unavailable [phone] Reason For Referral No Information Medications Medication SIG (Take, Route, Frequency, Duration) Notes Start Date End Date Status Wellbutrin XL 150 MG 1 tablet in the mor ashlee Orally Once a day Active Night Splint AFO - L1930 as directed 01/10/2017 Active Lisinopril 10 MG 1 tablet Orally Once a day Active Shoes . . . Medically necess wolfgang to wear comfortable shoes at work; Duration: as needed 01/10/2017 Active Social History Tobacco use other than smoking: Question Answer Notes Are you an other tobacco user? No Problems Problem Type SNOMED Code ICD Code Onset Dates Problem Status W/U Status Risk Notes Problem Plantar fascial fibromatosis ([id number]) Plantar fascial fibromatosis (M72.2) Active confirmed Plan Of Treatment No Information Insurance Providers Payer Name Payer Address Payer Phone Subscriber Number Group Number Insured Name Patient Relationship to Insured Coverage Start Date Coverage End Date [facility] [address] [place] [id number] [phone] [id number] Gabriel Lyons Self - patient is the insured Medical (General) History Medical History History ICD Code Depression High blood pressure Chicken pox Surgical History Surgery Date(Month/Year)
== END 2025-06-20 14:16 | disposition home or self-care (01) ==
LOC: HO.HMCH 13:11
DX: I10 Essential (primary) hypertension (principal); E11.65 Type 2 diabetes mellitus with hyperglycemia; E66.01 Morbid (severe) obesity due to excess calories; Z68.43 Body mass index [BMI] 50.0-59.9, adult; E78.5 Hyperlipidemia, unspecified; Z98.890 Other specified postprocedural states; F32.A Depression, unspecified

== ENCOUNTER → 2025-06-20 13:11 | Outpatient (BNVA) | payer BC, SELFPAY | DX: I10 Essential (primary) hypertension (principal); F32.A Depression, unspecified; E11.65 Type 2 diabetes mellitus with hyperglycemia; E78.5 Hyperlipidemia, unspecified; E66.01 Morbid (severe) obesity due to excess calories; Z98.890 Other specified postprocedural states; Z79.899 Other long term (current) drug therapy; Z68.43 Body mass index [BMI] 50.0-59.9, adult | CPT/HCPCS: 96127 ==

== ENCOUNTER 2025-07-16 08:22 | Outpatient (AMB) | payer BC, SELFPAY ==
--- NOTE | 2025-07-16 08:25 | A.OFFVIS_ITS ---
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 55.4 Allergies dapagliflozin (From [facility]) Adverse Reaction (Mild, Verified 07/16/25 08:25) Nausea metformin Adverse Reaction (Mild, Verified 07/16/25 08:25) Dizziness Medication List - Last Reconciled 07/16/25 by Luther Jo MD amlodipine 10 mg PO DAILY blood pressure monitor (Blood Pressure Kit) XL cuff; As directed to check BP daily bupropion HCl SR 150 mg PO DAILY clonidine HCl 0.2 mg PO BID 90 days lisinopril-hydrochlorothiazide 20-12.5 mg 2 tabs PO DAILY semaglutide (Ozempic) 0.25 mg (0.368 mL) subcut QWEEK HPI HPI 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 55.4: Details: Start time: 8.13am, End time: 9.02am ?I spent 44 minutes speaking with the patient on the phone plus an additional 5 minutes reviewing and updating records for a total of 49 minutes HPI Comments Details: Previous weight loss efforts: [facility] program (30lbs weight loss which he maintains since 2019), intermittent fasting, Ozempic Wakes up: 5.45am, sleeps: 11pm Breakfast: 7am (Wrap from [employer]) Lunch: 1pm (yogurt, liquid Premier shake or a Whey powdered shake, or salad) Dinner: 5pm (meat with vegetables) Snacks: 10am (nuts) Exercise: has Gym membership Beverages: Coffee (1 cup/d from [employer]), Tea: rarely, Soda: none, Juice: rarely, ETOH: none PFSH Medical History Abnormal nuclear stress test Incomplete left bundle branch block (LBBB) Hypertension Depression Morbid obesity Surgical History H/O tooth extraction Hx of wisdom tooth extraction Family History Father DM (diabetes mellitus) DM retinopathy Mother Liver problem Brother No problems noted. Sister No problems noted. Social History Household Members: Spouse Both parents involved: No Caregiver staying overnight: No Housing: Condominium Are you a primary career and transition teacher to a significant other at home: No Do you presently have visiting nurse or other home services: No Alcohol intake: never Patient Tobacco Use Status: Former Tobacco user e-Cigarette/Vaping Use: Never Used Substance Use Type: Marijuana service: No Current occupational status: employed Hearing needs: No Vision needs: No Telehealth Telehealth Telehealth Platform: Telephone Location of provider rendering services: practice address Location of patient: address on file Patient Identification confirmed using: Name, : Yes Telehealth method: voice only Patient verbally consented to treatment: Yes Patient verbally consented to billing insurance company: Yes Patient informed of any privacy concerns related to visit: Yes Minutes spent on Phone/Video with Pt.: 49 Assessment & Plan Assessment & Plan (1) Morbid obesity: Code(s): E66.01 - Morbid (severe) obesity due to excess calories Category: Medical Plan: 1.? Plan for lap sleeve gastrectomy. If diaphragmatic or ventral hernias are present at time of surgery, these will be repaired laparoscopically as well. I emphasized the importance of close follow-up, adherence to instructions and good communication. The surgery does not replace the need to change your lifestlyle which is the cause of the obesity problem. The surgery provides the motivation to try again to change your lifestyle, it reduces the appetite and make the transition to a better lifestyle easier and doubles the amount of weight you would lose compared to doing the lifestyle change without the surgery. You will need to be on a liquid diet with protein shakes for 2 weeks before surgery to maximize weight loss and boost your nutritional status to recover better from surgery and also for the first two weeks after surgery to let the stomach heal before we introduce other foods. After the first 2 weeks we will introduce protein bars and soft foods like scrambled eggs, cottage cheese and yogurt and after the 6th week will introduce meat, fish and cooked vegetables in small amounts. Over time you should be able to eat everything in small amounts. Side effects like nausea, vomiting, heartburn or abdominal pain are not common in the practice unless you are not following in the practice. This operation requires lifetime commitment to following in our practice and communication with me. You will much less weight and experience side effects if you don?t communicate or not following in the practice. Complications are rare and in our practice is about 1/10 of the national average. However, you can develop bleeding that may require transfusion (hasn?t happened for year in the practice), you may from complications (we did not have any deaths in the practice) and infections. Infections are usually a result of breakdown in communication or not understanding or following directions correctly. They are difficult to treat, they can happen during the first 6 weeks, they may require to be in the hospital for weeks or even months, not being able to eat by mouth and you may have drains and surgeries to try and correct the issue. Other risks and complications include possible conversion to an open procedure, leaks, small bowel obstruction, blood clots, cardiac, or pulmonary complications, as senior living complications such as ulcers, insufficient weight loss and vitamin deficiencies. 2. Nutritional counseling. Start with one premade PREMIER protein (buy at [employer] or [employer]) shake (8oz of Premier and NOT the whole bottle) at 7am-9am, one protein bar (Barebell protein bar, buy at [employer], or [employer] at 10am-12pm, another WHEY POWDERED protein shake (mix ONE scoop of the powder with 8oz low fat unsweetened almond milk each) at 1pm-3pm, another Barebell protein bar,? dinner at 7pm (14 forks of protein and 14 forks of salad/vegetables) and another Barebell bar after dinner. So you do 2 protein shakes, 3 protein bars and one meal per day. Meal to include lean meat (beef, fish, pork, turkey, chicken), or ghanaian yogurt, or egg whites, or beans with a salad with olive oil and fruits (berries, pears, apples, kiwi). Avoid salt, breads, potatoes, rice, pasta, desserts. 3. Each shake would be drunk slowly, like coffee in a period of 2 hours. 4. Cut each bar in 4 pieces and eat each piece in 30min ?to make each bar last 2 hours. 5. I emphasized the importance of measuring accurately the food portion and measure it when serving the food in plate 6. The meal portions include 14 full-size forks of meat and 14 full-size forks of salad. You always eat the meat portion but you can replace up to 7 forks for salad/vegetables with rice, potatoes or pasta, or a fruit ?if you like. The less you do it the better weight loss will be. 7. One full-size fork is what it can be scooped on the fork without falling aside and not what can be bit with the fork. Use regular forks like those you find in a typical restaurant. 8.? Please use the body composition scale, as we discussed and send me weight measurements as soon as possible and then once a week. Always include your diet and exercise plan. 9. Start treadmill with an incline of 2.0 and speed of 2.5mph. Increase incline by 1 every 3 min to a max incline of 8.0, stay 3min at 8.0 and then return to 2.0 and repeat same steps until calorie goal is met. Goal is to burn 2000 ca lories per week on exercise, which means either 300 calories daily, or 400 calories 5 days per week. 10. The best choice would be to purchase a stationary bike, elliptical or treadmill at home that can track calories. Let me know if you do so I can give you an exercise plan. 11. Goal is to lose at least 1.5-2lbs per week 12. Goal to lose 10% of your weight before surgery, which is about 40lbs. Ultimate weight goal: 360lbs before surgery 13. Please follow the diet plan exactly without any change. If you don't like something about the plan or you feel hungry you need to communicate with me so I can help you revise the plan. You should not change the plan yourself 14. To be scheduled for EGD to assess the stomach's anatomy. The possibility of biopsies was discussed. Patient needs to avoid use of NSAIDs and aspirin for 1 week prior to EGD. You must be on liquids only the day before your endoscopy. Risks of perforation and bleeding was discussed with the patient. This will be an outpatient procedure with IV sedation.
[2025-07-16 08:36] VITALS: BMI 55.4
== END 2025-07-16 09:03 | disposition home or self-care (01) ==
LOC: HO.HBS 08:22
PROVIDERS: Visit Provider Surgery
DX: E66.01 Morbid (severe) obesity due to excess calories (principal); Z68.43 Body mass index [BMI] 50.0-59.9, adult; Z71.3 Dietary counseling and surveillance
CPT/HCPCS: 99214

== ENCOUNTER 2025-07-25 09:25 | Outpatient (REF) | payer BC, SELFPAY ==
[2025-07-25 09:53] LABS: MANUAL DIFF FLAG NO
[2025-07-25 10:20] LABS: Hematocrit 44.9 % (42.0-52.0); Hemoglobin 15.0 g/dl (14.0-18.0); Imm Gran Abs Auto 0.04 X10*3/uL (0.00-0.03); Imm Gran Pct Auto 0.5 % (0.0-0.4); Lymphocytes Absolute Auto 1.8 X10*3/uL (1.2-4.9); Mean Corpuscular HGB Conc 33.4 g/dl (31.0-36.0); Mean Corpuscular Hemoglobin 26.1 pg (27.0-33.0); Mean Corpuscular Volume 78.2 fL (80.0-98.0); NRBC Abs Auto 0.000 X10*3/uL (0.0-0.012); NRBC Pct Auto 0.0 /100WBC (0.0-0.2); Platelet Count 298 X10*3/uL (160-400); Red Blood Count 5.74 X10*6/uL (4.60-5.80); White Blood Count 8.0 X10*3/uL (4.8-10.8)
--- OUTSIDE RECORDS SUMMARY | 2025-07-25 10:30 | XMS_ITS | Patient Health Record ---
Author Organization [facility] Address [address] [place] [address] Care Team Providers Care Supervisor Coin Machine Name Role Phone Noah VEGA, Ken Primary Care Provider Russ Sanchez Unavailable [phone] Reason For Referral No Information Medications Medication [...] Status Risk Notes Problem Plantar fascial fibromatosis ([id number]) Plantar fascial fibromatosis (M72.2) Active confirmed Plan Of Treatment No Information Insurance Providers Payer Name Payer Address Payer Phone Subscriber Number Group Number Insured Name Patient Relationship to Insured Coverage Start Date Coverage End Date [facility] [address] [place] [id number] [phone] [id number] Gabriel Lyons Self - patient is the insured Medical (General) History Medical History History ICD Code Depression High blood pressure Chicken pox Surgical History Surgery Date(Month/Year)
[2025-07-25 11:03] LABS: Appearance Urine Clear; Glucose Urine UA Negative (Negative); PH 5.5 (5.0-9.0); Specific Gravity - Urine 1.020 (1.005-1.025); UMIC TRIGGER UACC YES
[2025-07-25 13:11] LABS: Alanine Aminotransferase 16 U/L (0-40); Albumin Level 4.2 g/dL (3.5-5.0); Alkaline Phosphatase 118 U/L (39-117); Anion Gap 11 (12-20); Aspartate Amino Transferase 15 U/L (5-37); Blood Urea Nitrogen 15 mg/dL (9-16); Calcium 9.2 mg/dL (8.4-10.2); Carbon Dioxide 29 mmol/L (22-29); Chloride 103 mmol/L (96-108); Cholesterol 182 mg/dL (<200); Estimated Glomerular Filt Rate > 60; HDL Cholesterol 31 mg/dL (>40); Potassium 4.0 mmol/L (3.3-5.1); Sodium 139 mmol/L (135-145); Total Protein 7.8 g/dL (6.5-8.0); Triglycerides 113 mg/dL (<150)
[2025-07-25 14:15] LABS: Folate 7.8 ng/mL (> or = 4.0); Vitamin B12 479 pg/mL (200-900)
[2025-07-25 14:24] LABS: Microalbum/Creatinine Ratio Ur 434.6 ug/mg cr (<30)
[2025-07-29 21:42] LABS: PSA, Ultra Sensitive 1.27 ng/mL
== END 2025-07-25 09:26 | disposition home or self-care (01) ==
LOC: HO.LAB 09:25
PROVIDERS: Referring Provider Surgery
DX: Z00.00 Encounter for general adult medical examination without abnormal findings (principal); Z12.5 Encounter for screening for malignant neoplasm of prostate; Z13.29 Encounter for screening for other suspected endocrine disorder; Z13.21 Encounter for screening for nutritional disorder; I42.9 Cardiomyopathy, unspecified; E11.9 Type 2 diabetes mellitus without complications; E78.00 Pure hypercholesterolemia, unspecified
CPT/HCPCS: 36415; 80053; 80061; 81001; 81003; 82043; 82306; 82570; 82607; 82746; 84153; 84443; 85025

== ENCOUNTER 2025-09-12 09:13 | Outpatient (AMB) | payer BC, SELFPAY ==
[2025-09-12 09:25] VITALS: BP 156/92; PULSE 74; O2SAT 98; BMI 53.7
--- NOTE | 2025-09-12 09:25 | MHC.OFFVIS ---
Vital Signs 09/12/25 09:25 Height 5 ft 11 in Weight 384 lb 14.833 oz BMI 53.7 BP 156/92 H Blood Pressure Location Rt brachial Position Sitting Pulse 74 Pulse Source Pulse Oximeter Pulse Oximetry (%) 98 Oxygen Delivery Method Room Air Intake Visit Reasons: Type 2 diabetes mellitus with hyperglycemia Intake Note: New patient internally referred for T2DM. Patient states he has a glucometer that he purchased on [employer]. Last Diabetic Eye exam: 1 year, due for exam Last Podiatry Visit: Does not see a Business Risk Analyst Random Glucose: 152 mg/dl Hgb A1C: 9.6% 09/12/2025 Patient Office Rep Required: No Accompanied by: Self / Same As Patient Allergies dapagliflozin (From [facility]) Adverse Reaction (Mild, Verified 09/12/25 09:26) Nausea metformin Adverse Reaction (Mild, Verified 09/12/25 09:26) Dizziness HPI Comments Details: 45-year-old male with a past medical history of type 2 diabetes, morbid obesity, hypertension, hyperlipidemia, cardiomyopathy. CGM co-pay was too expensive in the past. He would like to try resubmitting. He was diagnosed with diabetes 3-4 years ago. His father had Type II diabetes. He has a glucometer, but he does not have it with him. He checks his blood sugar about 3 times per day. He reports the following within the past 1-2 weeks: Fastin-160 Breakfast/lunch: mid to high 100s Hemoglobin a1c today 9.6% down from 10.3%. Current medication regimen: Mounjaro 2.5 mg weekly (2nd injection), denies side effects Past medication: Farxiga discontinued due to nausea, metformin discontinued due to dizziness. Ozempic (ineffective, felt more hungry). Trulicity discontinued to swtich to Ozempic. Diet: Breakfast- protein shake or protein bar Lunch- protein shake or bar (has another in the afternoon) Dinner- Protein and vegetables Snacks/desserts: not really now Doesn't drink soda Has coffee (no sugar) and water No alcohol in 8-10 years Quit smoking 13 years ago Exercise: treadmill Hypoglycemia symptoms: None recently. 1 low of 68 in the past year. Hyperglycemia symptoms: None Eye exam: [facility] (appointment is scheduled in October) Microvascular complications: Nephropathy (microalbuminuria), cardiomyopathy (negative cath 2022) Macrovascular complications: Diabetic ulcers, CAD, CVA, PAD Hypertension: treated with amlodipine, lisinopril-hydrochlorothiazide, He did not his medicine today and anxious. Hyperlipidemia: treated with atorvastatin, restarted three weeks ago, last LDL 129 Restarted [facility] weight loss management in June. Eventually wants to have bariatric surgery. He is losing weight. ROS: Constitutional: No unexplained weight loss, fever, chills, fatigue or night sweats. Eyes: No vision changes Respiratory: No shortness of breath Cardiovascular: No chest pain Gastrointestinal: No anorexia, nausea, vomiting or diarrhea. No abdominal pain or constipation. Neurologic: No headache, dizziness, syncope, numbness or tingling in the extremities. Skin: No ulcers or wounds. Endocrine: No cold or heat intolerance. No polyuria or polydipsia. Physical exam: Constitutional: Alert, in no distress. Neck: Supple, Full range of motion. No lymphadenopathy. No palpable thyroid masses. Respiratory: Clear to auscultation. Cardiovascular: S1 S2 regular. No murmurs. Right foot: Warm and well perfused. No clubbing, cyanosis or edema. Intact DP pulse. Intact vibratory sensation. Intact sensation to monofilament. No open wounds. Left foot: Warm and well perfused. No clubbing, cyanosis or edema. Intact DP pulse. Intact vibratory sensation. Intact sensation to monofilament. No open wounds. Psychiatric: Normal mood and affect [facility] Medical History (Updated 09/12/25 @ 10:13 by FOZIA Tejeda) Microalbuminuria Abnormal nuclear stress test Incomplete left bundle branch block (LBBB) Hypertension Depression Morbid obesity Surgical History H/O tooth extraction Hx of wisdom tooth extraction Family History Father DM (diabetes mellitus) DM retinopathy Mother Liver problem Brother No problems noted. Sister No problems noted. Social History Household Members: Spouse Both parents involved: No Caregiver staying overnight: No Housing: Condominium Are you a primary transitional care liaison to a significant other at home: No Do you presently have visiting nurse or other home services: No Alcohol intake: never Patient Tobacco Use Status: Former Tobacco user e-Cigarette/Vaping Use: Never Used Substance Use Type: Marijuana service: No Current occupational status: employed Hearing needs: No Vision needs: No Physical Exam Vital Signs: Last Vital Signs Pulse 74 09/12/25 09:25 BP 156/92 H 09/12/25 09:25 Pulse Ox 98 09/12/25 09:25 Oxygen Delivery Method Room Air 09/12/25 09:25 BMI result Body Mass Index 53.7 Results AMB Hemoglobin A1c AMB Hemoglobin A1c 9.6 % Last Edit by DAMON Isbell on 09/12/25 09:47 Results Reviewed Results Reviewed: Laboratory Last Values Glucose (Clinic) 152 mg/dL (60-115) H 09/12/25 09:30 Hgb A1c (Clinic) 9.6 % (4.0-6.0) H 09/12/25 09:33 Laboratory Tests 12/16/22 07/25/25 07/25/25 12:16 09:45 09:47 Plt Count 298 Creatinine 0.81 Estimated GFR > 60 Hemoglobin A1c % 7.0 AST 15 ALT 16 Triglycerides 113 Cholesterol 182 LDL Cholesterol, Calc 129 H HDL Cholesterol 31 L Vitamin B12 479 Folate 7.8 TSH 1.98 Urine Creatinine 133.21 Urine Microalbumin 579.0 Microalb/Creat Ratio 434.6 H Assessment & Plan Assessment & Plan (1) Uncontrolled diabetes mellitus with hyperglycemia: Code(s): E11.65 - Type 2 diabetes mellitus with hyperglycemia Category: Medical Qualifiers: Diabetes mellitus type: type 2 Qualified Code(s): E11.65 - Type 2 diabetes mellitus with hyperglycemia (2) Hypertension: Code(s): I10 - Essential (primary) hypertension Category: Medical Qualifiers: Hypertension type: primary hypertension Qualified Code(s): I10 - Essential (primary) hypertension (3) Hyperlipidemia: Code(s): E78.5 - Hyperlipidemia, unspecified Category: Medical Qualifiers: Hyperlipidemia type: pure hypercholesterolemia Qualified Code(s): E78.00 - Pure hypercholesterolemia, unspecified (4) Morbid obesity: Code(s): E66.01 - Morbid (severe) obesity due to excess calories Category: Medical (5) Microalbuminuria: Code(s): R80.9 - Proteinuria, unspecified Category: Medical Plan In summary this is a 45-year-old male with uncontrolled albeit improving type 2 diabetes. We reviewed complications of diabetes. He will continue Mounjaro 2.5 mg. He has an appointment with weight loss management in a couple of weeks to titrate the dose. I advised the patient that I am happy to take over prescribing the medication if needed. He has modified his diet, and he is losing weight. I congratulated patient on these changes. He will continue his diet plan. I will submit Elan 3+. Advised to use backup glucometer when indicated. Bring glucometer to next appointment. He has microalbuminuria. Discussed trial of Jardiance. At this time the patient would like to continue his current medication and lifestyle modifications and re-evaluate in 6 weeks which is reasonable since his blood sugars are improving. His blood pressure is elevated today. He was anxious and had not taken his medications today. Recheck at next visit. Continue to drink water, avoid caffeine and smoking. Follow a low-sodium diet. He will continue atorvastatin for hyperlipidemia. This was restarted a few weeks ago. Reviewed treatment of hypoglycemia. Written instructions provided. Follow up in 6 weeks. Orders: Orders AMB Hemoglobin A1c Today E11.65 - Type 2 diabetes mellitus with hyperglycemia Medications: New blood-glucose,general foreman,cont (FreeStyle Elan 3 [place]) Use daily to monitor blood glucose levels continuously. 1 ea 0RF blood-glucose sensor (FreeStyle Elan 3 Plus Sensor device) Apply 1 new sensor every 15 days as directed to monitor blood glucose continuously. 2 ea 11RF Patient Instructions: Continue Mounjaro 2.5 weekly. If you experience low blood sugar (under 70), treat this by eating a chewable fruit candy like skittles or jelly beans (about 8 pieces), 4 ounces (1/2 cup) of fruit juice (not diet), 1 tablespoon of honey or 4 glucose tablets. If your blood sugar is under 50, take double the amount of one of the above. Recheck your blood sugar in 15 minutes. www.diabetes.org Coding Level of Care Code New Pt Level 4 (98713) Complex visit Add On G2211 Diagnoses Uncontrolled type 2 diabetes mellitus with hyperglycemia E11.65 Diabetes mellitus type: type 2 Primary hypertension I10 Hypertension type: primary hypertension Pure hypercholesterolemia E78.00 Hyperlipidemia type: pure hypercholesterolemia Morbid obesity E66.01 Microalbuminuria R80.9
[2025-09-12 09:34] LABS: Glucose, Whole Blood 152 mg/dL (60-115)
== END 2025-09-12 10:12 | disposition home or self-care (01) ==
LOC: HO.ENCR 09:14
PROVIDERS: Visit Provider Physician Assistant Medical
DX: E11.65 Type 2 diabetes mellitus with hyperglycemia (principal); I10 Essential (primary) hypertension; E78.00 Pure hypercholesterolemia, unspecified; E66.01 Morbid (severe) obesity due to excess calories; R80.9 Proteinuria, unspecified

== ENCOUNTER → 2025-09-12 09:13 | Outpatient (BNVA) | payer BC, SELFPAY | PROVIDERS: Visit Provider Physician Assistant Medical | DX: E11.65 Type 2 diabetes mellitus with hyperglycemia (principal); I10 Essential (primary) hypertension; E78.00 Pure hypercholesterolemia, unspecified; E66.01 Morbid (severe) obesity due to excess calories; R80.9 Proteinuria, unspecified; Z87.891 Personal history of nicotine dependence; Z68.43 Body mass index [BMI] 50.0-59.9, adult; Z79.85 Long-term (current) use of injectable non-insulin antidiabetic drugs | CPT/HCPCS: 82947; 83036 ==